=== PATIENT | male | born 1980 | race Caucasian/White ===

== ENCOUNTER 2022-08-16 16:36 | Outpatient (RCR) | payer BC, SELFPAY ==
--- NOTE | 2022-08-18 14:56 | BUPTOPEVAL1 ---
Assessment and note entered by Tyree Elena Evaluation Information Assessment Status Evaluation Diagnosis left hip pain Onset 07/07/22 Subjective Information Pt. reports that he woke with pain around 07/07/22. He reports that pain is located in quang left buttock. He reports that he went to the chiropractor which did not help to reduce his pain . 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 He reports that he continues to work despite his pain. He states that pain worsens with transitioning from standing to sitting. He reports that getting out of bed is difficult. Pt. reports that he has not done any xray at this time. He states that his goal is to reduce pain with standing and walking. Reported Pain Level Pain Score 8: Self Report Assessment PT Clinical Summary Pt. is a 41 year old male who enters the clinic with left hip pain. Pt. presents with indication of discogenic back pain on this date. He presents with impaired postural awareness, impaired l.e. strength, impaired gait and pain on this date. Continued treatment is indicated in order to improve these areas to allow the pt. to be able to particpate all work related activities and IADL's with improved comfort. Plan of Care Interventions Electrical Stimulation,Hot Pack/Cold Pack,Manual Therapy,Neuro Re-education,Therapeutic Activities, Therapeutic Exercise,Self-Care/Home Management PT Services Indicated Yes Treatment Frequency and 2x/week x 8 visits Duration These treatments will address the objective and functional deficits as defined above. The patient will be advanced safely and appropriately in order for the patient to progress towards his/her prior level of function. Additional exercises will be introduced and as well as a comprehensive home exercise program upon discharge, if needed, ?to ensure carryover of functional gains achieved in the clinic. This treatment plan has been reviewed and agreement upon by the patient.
--- NOTE | 2022-09-13 08:54 | PTOPDC ---
Assessment and note entered by Naomy Merrill DPT Evaluation Information Assessment Status Re-evaluation Diagnosis left hip pain Onset 07/07/22 Subjective Information Emil reports good improvement since starting PT. He reports he has noticed good improvement in L LE strength and has improved ability to navigate stairs. He reprts that mornings are his times of highest pain. Reported Pain Level Pain Score 6: Self Report Assessment PT Clinical Summary Emil presents to PT this date with good improvement towards all goals. He was seen from -09/13/22. Today he demonstrates improved strength and function. He continues to demonstrate decrease in L ankle DF strength. 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 Patient is independent with HEP and is appropriate for DC at this time. Plan of Care PT Services Indicated No Treatment Frequency and DC to independent HEP Duration
== END 2022-09-13 09:57 | disposition home or self-care (01) ==
LOC: CHSPT 16:36
PROVIDERS: PCP Family Medicine; Visit Provider Physician Assistant
DX: M25.552 Pain in left hip (principal)
CPT/HCPCS: 97012; 97014; 97110; 97161; G0283

== ENCOUNTER 2024-01-02 11:34 | Outpatient (CLI) | payer OTHER, SELFPAY ==
--- NOTE | ~2024-01-02 | XR_ITS ---
Right Hand Technique: PA, oblique, and lateral views were obtained. Clinical History: Pain Findings: No acute fracture or dislocation is seen. Old, healed fracture fifth metacarpal noted. Osse ous alignment is anatomic. Joint spaces are preserved. Soft tissues are unremarkable. Impression: No acute abnormality. Old, healed fracture deformity of the fifth metacarpal. Reviewed, dictated and finalized at location . Impression: No acute abnormality. Old, healed fracture deformity of the fifth metacarpal.
== END 2024-01-02 11:35 | disposition home or self-care (01) ==
LOC: CHSIMG 11:36
PROVIDERS: PCP Family Medicine; Visit Provider Registered Nurse
DX: M79.644 Pain in right finger(s) (principal); Z87.81 Personal history of (healed) traumatic fracture
CPT/HCPCS: 73130